=== PATIENT | male | born 1975 | race Caucasian/White ===

== ENCOUNTER 2018-10-28 13:44 | Emergency (ER) | payer OTHER, BC ==
[2018-10-28] MEDS ORDERED: Bacitracin Oint 1 GM U/D Packet TOP ONE (14:12)
[2018-10-28] MEDS ORDERED: Diphtheria,Pertussis(Acell),Tetanus Vaccine 0.5 ML Syringe IM ONE (14:12)
--- NOTE | 2018-10-28 14:16 | EDM.PDOC ---
ED HPI GENERAL MEDICAL PROBLEM - General Chief Complaint: Bite:Animal, Insect Stated Complaint: CAT BITE Time Seen by Provider: 10/28/18 13:48 Source of Information: Reports: Patient History Limitations: Reports: No Limitations - History of Present Illness INITIAL COMMENTS - FREE TEXT/NARRATIVE: HISTORY AND PHYSICAL: History of present illness: And is a 42-year-old male who presents to the emergency room with complaints of Bite to the left index finger with superficial abrasions to his forearm. He states he saw a cat on the ground and had reached down to pick it up when the cat turned around and bit his finger and scratched his right forearm. Cat is unknown on its immunizations status. States he is unsure of his last tetanus up- to-date. Review of systems: As per history of present illness and below otherwise all systems reviewed and negative. Past medical history: As per history of present illness and as reviewed below otherwise noncontributory. Surgical history: As per history of present illness and as reviewed below otherwise noncontributory. Social history: See social history for further information Family history: As per history of present illness and as reviewed below otherwise noncontributory. Physical exam: General: Well-developed and well-nourished 42-year-old male. Alert and oriented. Nontoxic appearing and in no acute distress. HEENT: Atraumatic, normocephalic, pupils equal and reactive bilaterally, negative for conjunctival pallor or scleral icterus, mucous membranes moist, TMs normal bilaterally, throat clear, neck supple, nontender, trachea midline. No drooling or trismus noted. No meningeal signs. No hot potato voice noted. Lungs: Clear to auscultation, breath sounds equal bilaterally, chest nontender. Heart: S1S2, regular rate and rhythm without overt murmur Abdomen: Soft, nondistended, nontender. Skin: Puncture site noted to the left distal index finger with mild erythema surrounding the site. Superficial scratches noted to the dorsal aspect of the left hand and right forearm. Otherwise skin intact, warm, dry. No lesions or rashes noted. Extremities: Atraumatic, moves all extremities per self without difficulty or deficits, negative for cords or calf pain. Neurovascular unremarkable. Neuro: Awake, alert, oriented. Cranial nerves II through XII unremarkable. Cerebellum unremarkable. Motor and sensory unremarkable throughout. Exam nonfocal. Notes: Wound care was provided. Tetanus was updated. Rabies immunization series was offered, he would like to move forward with the immunization. Outpatient's therapy prescription given further rabies vaccine on 10/31, 11/04, 11/07. Signs and symptoms that would prompt him to return to the emergency room were reviewed and discussed. Supportive care measures were reviewed and discussed. Voices understanding and is agreeable to plan of care. Denies any further questions or concerns at this time. Diagnostics: None Therapeutics: Tetanus up-to-date, wound care, bacitracin, rabies series Prescription: Augmentin 875mg BID x 10 days Outpatient Rabies Series Impression: Animal bite Plan: 1. Keep the skin clean and dry. Wash gently twice daily with soap and water. Continue to monitor for signs of improvement. Take antibiotic as prescribed. 2. Tylenol and/or ibuprofen as needed for pain management. 3. Please return for outpatient therapy to have rabies vaccine administered on (), 11/04 (Sunday), 11/07 (). This will be done as an outpatient - asked to speak with the nursing automobile body repair supervisor and they will direct to wear to receive the shots. 4. Follow-up with your primary care provider as we discussed. Return to the ED as needed and as discussed. Definitive disposition and diagnosis as appropriate pending reevaluation and review of above. - Related Data Allergies Allergy/AdvReac Type Severity Reaction Status Date / Time No Known Allergies Allergy Verified 10/08/13 15:54 Home Meds: Home Meds . [No Known Home Meds] 10/08/13 [History] Past Medical History - Past Health History Medical/Surgical History: Denies Medical/Surgical History ED ROS GENERAL - Review of Systems Review Of Systems: ROS reveals no pertinent complaints other than HPI. ED EXAM, ANIMAL BITE - Physical Exam Exam: See Below (See dictation) Course - Orders/Labs/Meds Orders: Active Orders 24 hr Category Date Time Status Communication Order [RC] STAT Care 10/28/18 14:12 Active Vaccines to be Administered [RC] PER UNIT ROUTINE Care 10/28/18 14:13 Active Vaccines to be Administered [RC] PER UNIT ROUTINE Care 10/28/18 14:24 Ordered Meds: Medications Discontinued Medications Generic Name Dose Route Start Last Admin Trade Name Fredeidra PRN Reason Stop Dose Admin Bacitracin 1 dose 10/28/18 14:12 Bacitracin Oint 1 Gm TOP 10/28/18 14:13 ONETIME ONE Diphtheria/Tetanus/Acell Pertussis 0.5 ml 10/28/18 14:12 Adacel IM 10/28/18 14:13 .ONCE ONE Rabies Immune Globulin 2,246 unit 10/28/18 14:24 Hyperrab S/D IM 10/28/18 14:25 ONETIME ONE Rabies Vaccine 2.5 unit 10/28/18 14:23 Rabavert IM 10/28/18 14:24 .ONCE ONE Departure - Departure Time of Disposition: 14:31 Disposition: Home, Self-Care 01 Clinical Impression: Cat bite of index finger Qualifiers: Encounter type: initial encounter Qualified Code(s): S61.258A - Open bite of other finger without damage to nail, initial encounter; W55.01XA - Bitten by cat , initial encounter - Discharge Information Instructions: Animal Bite, Adult, [id number] Referrals: PCP,Unknown [Primary Care Provider] - Forms: ED Department Discharge Additional Instructions: The following information is given to patients seen in the emergency department who are being discharged to home. This information is to outline your options for follow-up care. We provide all patients seen in our emergency department with a follow-up referral. The need for follow-up, as well as the timing and circumstances, are variable depending upon the specifics of your emergency department visit. If you don't have a primary care physician on staff, we will provide you with a referral. We always advise you to contact your personal physician following an emergency department visit to inform them of the circumstance of the visit and for follow-up with them and/or the need for any referrals to a consulting specialist. The emergency department will also refer you to a specialist when appropriate. This referral assures that you have the opportunity for follow-up care with a specialist. All of these measure are taken in an effort to provide you with optimal care, which includes your follow-up. Under all circumstances we always encourage you to contact your private physician who remains a resource for coordinating your care. When calling for follow-up care, please make the office aware that this follow-up is from your recent emergency room visit. If for any reason you are refused follow-up, please contact the [facility] Emergency Department at and asked to speak to the emergency department charge nurse. PETRA [facility] [address] [place] [address] [facility] [address] [place] [address] 1. Keep the skin clean and dry. Wash gently twice daily with soap and water. Continue to monitor for signs of improvement. Take antibiotic as prescribed. 2. Tylenol and/or ibuprofen as needed for pain management. 3. Please return for outpatient therapy to have rabies vaccine administered on (), 11/04 (Sunday), 11/07 (). This will be done as an outpatient - asked to speak with the nursing automobile body repair supervisor and they will direct to wear to receive the shots. 4. Follow-up with your primary care provider as we discussed. Return to the ED as needed and as discussed. - My Orders Last 24 Hours: My Active Orders 10/28/18 14:12 Communication Order [RC] STAT 10/28/18 14:13 Vaccines to be Administered [RC] PER UNIT ROUTINE 10/28/18 14:24 Vaccines to be Administered [RC] PER UNIT ROUTINE - Assessment/Plan Last 24 Hours: My Active Orders 10/28/18 14:12 Communication Order [RC] STAT 10/28/18 14:13 Vaccines to be Administered [RC] PER UNIT ROUTINE 10/28/18 14:24 Vaccines to be Administered [RC] PER UNIT ROUTINE
[2018-10-28] MEDS ORDERED: Rabies Vaccine (Avian) 2.5 Unit Inj Kit IM ONE (14:23)
[2018-10-28] MEDS ORDERED: Rabies Immune Globulin PF 150 Units/ML 10 ML SDV IM ONE (14:24)
[2018-10-28] MEDS ORDERED: Rabies Immune Globulin PF 150 Units/ML 2 ML SDV IM ONE (14:42)
== END 2018-10-28 15:21 | disposition home or self-care (01) ==
LOC: MW.ED 13:44
DX: S61.251A Open bite of left index finger without damage to nail, initial encounter (principal); S60.512A Abrasion of left hand, initial encounter; S50.811A Abrasion of right forearm, initial encounter; Z23 Encounter for immunization; W55.01XA Bitten by cat, initial encounter
CPT/HCPCS: 90376; 90471; 90675; 90715; 99283

== ENCOUNTER 2019-01-23 17:30 | Emergency (ER) | payer BC, OTHER ==
--- NOTE | 2019-01-23 18:18 | EDM.PDOC ---
ED HPI GENERAL MEDICAL PROBLEM - General Chief Complaint: Behavioral/Psych Stated Complaint: MENTAL HEALTH Time Seen by Provider: 01/23/19 17:31 Source of Information: Reports: Patient History Limitations: Reports: No Limitations - History of Present Illness INITIAL COMMENTS - FREE TEXT/NARRATIVE: HISTORY AND PHYSICAL: History of present illness: Patient is a 43-year-old male who presents to the ED today with hopes to get resources for psychiatric evaluation and medication management. Patient states his primary care provider in [place] has recently adjusted medications and he feels like his anxiety is worse than usual. Patient states he has an appointment with a psychiatrist in [facility] in a few weeks but was wondering if he could get into any one sooner. Patient denies any symptoms or concerns at this time. Patient denies fever, chills, chest pain, shortness of breath, or cough. Denies headache, neck stiff ness, change in vision, syncope, or near syncope. Denies nausea, vomiting, abdominal pain, diarrhea, constipation, or dysuria. Has not noted any blood in urine or stool. Patient has been eating and drinking appropriately. Review of systems: As per history of present illness and below otherwise all systems reviewed and negative. Past medical history: As per history of present illness and as reviewed below otherwise noncontributory. Surgical history: As per history of present illness and as reviewed below otherwise noncontributory. Social history: See social history for further information Family history: As per history of present illness and as reviewed below otherwise noncontributory. Physical exam: General: Patient is alert, oriented, and in no acute distress. Patient sitting comfortably on exam table. HEENT: Atraumatic, normocephalic, pupils equal and reactive bilaterally, negative for conjunctival pallor or scleral icterus, mucous membranes moist, TMs normal bilaterally, throat clear, neck supple, nontender, trachea midline. No drooling or trismus noted. No meningeal signs. No hot potato voice noted. Lungs: Clear to auscultation, breath sounds equal bilaterally, chest nontender. Heart: S1S2, regular rate and rhythm without overt murmur Abdomen: Soft, nondistended, nontender. Negative for masses or hepatosplenomegaly. Negative for costovertebral tenderness. Pelvis: Stable nontender. Genitourinary: Deferred. Rectal: Deferred. Skin: Intact, warm, dry. No lesions or rashes noted. Extremities: Atraumatic, negative for cords or calf pain. Neurovascular unremarkable. Neuro: Awake, alert, oriented. Cranial nerves II through XII unremarkable. Cerebellum unremarkable. Motor and sensory unremarkable throughout. Exam nonfocal. Notes: 80 provide patient with resources for [facility] and [facility] services Discussed the importance for follow-up with a primary care provider and psychiatrist. Voices understanding and is agreeable to plan of care. Denies any further questions or concerns at this time. Diagnostics: None Therapeutics: None Prescription: None Impression: Medical screening exam H/O anxiety Plan: 1. Follow up with your primary care provider and psychiatrist as scheduled and as discussed. 2. Return to the ED as needed and as discussed. Definitive disposition and diagnosis as appropriate pending reevaluation and review of above. - Related Data Allergies Allergy/AdvReac Type Severity Reaction Status Date / Time No Known Allergies Allergy Verified 01/23/19 18:05 Home Meds: Home Meds ALPRAZolam [Xanax] 0.5 mg PO BID PRN 10/28/18 [History] metFORMIN [Glucophage] 1,000 mg PO BIDMEALS 10/28/18 [History] Lisinopril 5 mg PO DAILY 01/23/19 [History] atorvaSTATin [Lipitor] 20 mg PO BEDTIME 01/23/19 [History] buPROPion [buPROPion XL] 150 mg PO DAILY 01/23/19 [History] Past Medical History - Past Health History Medical/Surgical History: Denies Medical/Surgical History Cardiovascular History: Reports: High Cholesterol, Hypertension Psychiatric History: Reports: Anxiety, Depression Endocrine/Metabolic History: Reports: Diabetes, Type II - Infectious Disease History Infectious Disease History: Reports: Chicken Pox, Shingles Social & Family History - Family History Family Medical History: Noncontributory - Tobacco Use Smoking Status *Q: Never Smoker Second Hand Smoke Exposure: No - Caffeine Use Caffeine Use: Reports: Soda - Recreational Drug Use Recreational Drug Use: No ED ROS GENERAL - Review of Systems Review Of Systems: Comprehensive ROS is negative, except as noted in HPI. ED EXAM, GENERAL - Physical Exam Exam: See Below (see dictation) Course - Vital Signs Last Recorded V/S: Last Vital Signs Temp 96.4 F 01/23/19 17:58 Pulse 93 01/23/19 17:58 Resp 18 01/23/19 17:58 BP 142/96 H 01/23/19 17:58 Pulse Ox 96 01/23/19 17:58 Departure - Departure Time of Disposition: 18:15 Disposition: Home, Self-Care 01 Clinical Impression: Encounter for medical screening examination, History of anxiety - Discharge Information Referrals: PCP,Not In Area [Primary Care Provider] - Additional Instructions: The following information is given to patients seen in the emergency department who are being discharged to home. This information is to outline your options for follow-up care. We provide all patients seen in our emergency department with a follow-up referral. The need for follow-up, as well as the timing and circumstances, are variable depending upon the specifics of your emergency department visit. If you don't have a primary care physician on staff, we will provide you with a referral. We always advise you to contact your personal physician following an emergency department visit to inform them of the circumstance of the visit and for follow-up with them and/or the need for any referrals to a consulting specialist. The emergency department will also refer you to a specialist when appropriate. This referral assures that you have the opportunity for follow-up care with a specialist. All of these measure are taken in an effort to provide you with optimal care, which includes your follow-up. Under all circumstances we always encourage you to contact your private physician who remains a resource for coordinating your care. When calling for follow-up care, please make the office aware that this follow-up is from your recent emergency room visit. If for any reason you are refused follow-up, please contact the [facility] Emergency Department at and asked to speak to the emergency department charge nurse. [facility] Primary [facility]/ Behavioral Health [address], [place] [address] [facility] [address] [place] [address] [facility] [address] [place] [address] 1. Follow up with your primary care provider and psychiatrist as scheduled and as discussed. 2. Return to the ED as needed and as discussed.
== END 2019-01-23 18:32 | disposition home or self-care (01) ==
LOC: MW.ED 17:30
DX: Z13.9 Encounter for screening, unspecified (principal); F41.9 Anxiety disorder, unspecified; E11.9 Type 2 diabetes mellitus without complications; I10 Essential (primary) hypertension; E78.00 Pure hypercholesterolemia, unspecified; Z79.84 Long term (current) use of oral hypoglycemic drugs; Z79.899 Other long term (current) drug therapy
CPT/HCPCS: 99282; 99284